=== PATIENT | male | born 1975 | race Two or more races ===

== ENCOUNTER 2017-01-05 02:01 | Emergency (ER) | payer SELFPAY ==
[~2017-01-05] VITALS: Ht 167.6 cm; Wt 81.6 kg
[2017-01-05 04:00] VITALS: BP 132/76
[2017-01-05] MEDS ORDERED: traMADol HCL 50 MG TAB PO ONE (04:00)
== END 2017-01-05 04:25 | disposition home or self-care (01) ==
LOC: EDBD 02:01 → ER 02:04
DX: S01.01XA Laceration without foreign body of scalp, initial encounter (principal); S60.221A Contusion of right hand, initial encounter; R07.89 Other chest pain; F17.210 Nicotine dependence, cigarettes, uncomplicated; V87.8XXA Person injured in other specified noncollision transport accidents involving motor vehicle (traffic), initial encounter; Y93.89 Activity, other specified; Y99.8 Other external cause status; Y92.89 Other specified places as the place of occurrence of the external cause
CPT/HCPCS: 12002; 70450; 71010; 73120; 82962